=== PATIENT | male | born 1975 | race Caucasian/White ===

== ENCOUNTER 2022-01-30 20:05 | Emergency (ER) | payer OTHER, SELFPAY ==
--- NOTE | ~2022-01-30 | XR_ITS ---
EXAMINATION: XR chest port-a-cath/central EXAM DATE: 01/30/2022 23:05 INDICATION: Central line placement. TECHNIQUE: Portable AP frontal chest x-ray was obtained. There is no prior study for comparison. FINDINGS: There is a nasogastric tube seen with tip collimated off the study, but below the left glenys diaphragm. Right-sided subclavian venous line. No confluent consolidation, pneumothorax or pleural ef fusion suspected. The cardiomediastinal silhouette is prominent but magnified on this AP technique. T here are mild bony degenerative changes. IMPRESSION: No evidence postprocedure pneumothorax or acute cardiopulmonary findings. Reviewed, dictated and finalized at location G. IMPRESSION: No evidence postprocedure pneumothorax or acute cardiopulmonary fi ndings.
--- NOTE | 2022-01-30 20:28 | ED.GIBLEED ---
HPI - GI Bleed General Chief complaint: Unspecified Stated complaint: bloody diarrhea Time Seen by Provider: 01/30/22 20:28 Source: patient History of Present Illness HPI Narrative: 46-year-old male with a history of negative cardiac catheterization per patient, atrial fibrillation on Xarelto, , status post gastric bypass surgery 1 year ago, negative colonoscopy according to the patient presents to the ER with -- 4 large volume bloody stools. No abdominal pain. No hematemesis. No melena. -- hypotension with a blood pressure as low as 78/60 with a heart rate of 130. no prior history of GI bleed. -- patient had a syncopal spell while trying to set up. -- Profuse sweating MD complaint: gross hematochezia Onset (ago): hour(s) ( Started 3 hours ago) Pain Consistency: intermittent Severity: severe Relieving factors: none Exacerbating factors: none Related Data Home Medications Medication Instructions Recorded Confirmed apixaban [Eliquis] 5 mg PO DAILY 01/30/22 01/30/22 cyclobenzaprine 10 mg PO DAILY 01/30/22 01/30/22 lisinopril 5 mg PO DAILY 01/30/22 01/30/22 metoprolol succinate 50 mg PO POST-TRANSFUSION 01/30/22 01/30/22 mupirocin See Rx Instructions .ROUTE .COMPLEX 01/30/22 01/30/22 rivaroxaban [Xarelto] 20 mg PO DAILY 01/30/22 01/30/22 sulfamethoxazole-trimethoprim 1 tablet PO DAILY 01/30/22 01/30/22 Allergies Allergy/AdvReac Type Severity Reaction Status Date / Time No Known Allergies Allergy Verified 01/30/22 20:32 Review of Systems Constitutional: Constitutional: Reports as per HPI and Reports no additional constitutional complaints Eyes: Eyes: Reports as per HPI and Reports no additional eye complaints ENT: Reports system reviewed and no additional complaints, except as documented Cardiovascular: Cardiovascular: Reports as per HPI, Reports no additional cardiovascular complaints and Reports rapid heart rate Respiratory: Respiratory: Reports as per HPI and Reports no additional respiratory complaints Gastrointestinal: Gastrointestinal: Reports as per HPI Comments: Massive hematochezia Genitourinary: Genitourinary: Reports no additional male genitourinary complaints Musculoskeletal: Musculoskeletal: Reports no additional musculoskeletal complaints Integumentary/Breasts: Skin/Breast: Reports system reviewed and no additional complaints, except as docu and Reports as per HPI Neurologic: Reports system reviewed and no additional complaints, except as documented and Reports as per HPI Psychiatric: Psychiatric: Reports no additional psychiatric complaints and Reports as per HPI Endocrine: Endocrine: Reports no additional endocrine complaints Hematologic/Lymphatic: Hematologic/Lymphatic: Reports no additional hematologic/lymphatic complaints Allergic/Immunologic: Allergic/Immunologic: Reports no additional allergic/immunologic complaints [facility] Past Medical History Medical History (Updated 01/30/22 @ 23:31 by Serge Lopez MD) Atrial fibrillation Surgical History Surgical History (Updated 01/30/22 @ 20:53 by Serge Lopez MD) Status post gastric bypass for obesity Exam Const: General: alert Orientation/consciousness: patient oriented x3 HENMT: Head: normal to inspection Eyes: Conjunctivae: conjunctivae normal Pupils: Equal, round and reactive pupils present Neck: Neck: normal visual inspection Chest: Chest palpation & inspection: normal inspection of the chest Resp: Effort & Inspection: normal respiratory effort Auscultation: clear to auscultation bilaterally Cardio: Rate: regular rate and tachycardic GI: GI Palp: Yes Soft to palpation Other: no tenderness/ rigidity /rebound : Testes: Testes normal Back/Spine/Pelvis: Back: no CVA tenderness Skin: General skin exam: normal color Rashes: no rashes Neuro: General: patient oriented x3, moves all extremities and no meningeal signs Extrem: General: normal to inspection Other: prominent varicose vein
[2022-01-30 20:29] VITALS: BP 91/58; PULSE 130; RESP 22; TEMP 36.6; O2SAT 96
--- NOTE | 2022-01-30 20:33 | ECG_ITS ---
Measurements Intervals [place] Rate: 127 P: 114 CT: 219 QRS: -40 QRSD: 103 T: -34 QT: 308 QTc: 448 Interpretive Statements JUNCTIONAL TACHYCARDIA WITH RETROGRADE P WAVES LEFT AXIS DEVIATION [QRS AXIS < -30] PATTERN CONSISTENT WITH PULMONARY DISEASE NONSPECIFIC T-WAVE ABNORMALITY ABNORMAL ECG NO PREVIOUS ECG AVAILABLE FOR COMPARISON Electronically Signed On 01-31-2022 15:35:08 CDT by Ammon Clifton M.D.
[2022-01-30 20:51] LABS: Basophils Absolute Auto 0.06 K/mm3 (0.00-0.10); Basophils Percent Auto 0.7 % (0.0-1.0); Eosinophils Absolute Auto 0.16 K/mm3 (0.02-0.50); Eosinophils Percent Auto 1.9 % (1.0-6.0); Hematocrit 31.6 % (40.0-54.0); Hemoglobin 10.6 g/dL (14.0-18.0); Immature Granulocyte Absolute 0.03 K/mm3 (0.00-0.00); Immature Granulocyte Percent A 0.4 % (0.0-0.0); Immature Platelet Fraction Pct 9.4 % (1.0-7.0); Lymphocytes Absolute Auto 2.08 K/mm3 (1.10-4.50); Lymphocytes Percent Auto 24.7 % (18.0-42.0); Mean Corpuscular HGB Conc 33.5 g/dL (32.0-36.0); Mean Corpuscular Hemoglobin 24.3 pg (27.0-31.0); Mean Corpuscular Volume 72.5 fL (78.0-102.0); Mean Platelet Volume 12.9 fl (8.7-11.0); Monocytes Absolute Auto 0.75 K/mm3 (0.10-0.90); Monocytes Percent Auto 8.9 % (2.0-11.0); Neutrophils Absolute Auto 5.3 K/mm3 (1.7-7.2); Neutrophils Percent Auto 63.4 % (50.0-70.0); Platelet Count Result 231 K/mm3 (150-420); Red Blood Count 4.36 M/mm3 (4.70-6.10); Red Cell Distribution Width 14.6 % (11.6-14.4); White Blood Count 8.4 K/mm3 (4.8-10.8)
[2022-01-30] MEDS: LACTATED RINGERS 1,000 ML 999 ML IV CONT (20:52)
--- NOTE | 2022-01-30 20:52 | PC.NURSE ---
Pt became syncopal when trying to use commode. laid back in bed
[2022-01-30 21:00] LABS: INR 1.2; Partial Thromboplastin Time 37.5 SEC (23.90-30.70); Prothrombin Time 12.5 Seconds (9.50-12.10)
[2022-01-30] MEDS: TRANEXAMIC ACID 1,000MG/ISO100 1,000 MG/100 ML BAG 200 MG IVPB (21:01)
[2022-01-30 21:07] LABS: Alanine Aminotransferase 22 U/L (16-63); Alkaline Phosphatase 65 U/L (46-116); Anion Gap 8 mmol/L (8-16); Aspartate Amino Transferase 20 U/L (15-37); Bilirubin,Total 0.5 mg/dL (0.00-1.00); Blood Urea Nitrogen 37 mg/dL (7-18); Calcium 8.1 mg/dL (8.5-10.1); Carbon Dioxide 22 mmol/L (21-32); Chloride 103 mmol/L (98-108); Estimated CRCL calculation 84 ml/min; Estimated Glomerular Filt Rate > 60; Glucose 136 mg/dL (70-99); Lipase 70 U/L (73-393); Osmolality Calculated 286 mOsm/kg (285-295); Sodium 133 mmol/L (136-145); Total Protein 6.4 g/dL (6.4-8.2)
[2022-01-30 21:27] LABS: NT Pro B Type Natriuretic Pept 326 pg/mL (0-125); Troponin I 7.8 ng/L (0.00-60.4)
[2022-01-30 21:49] LABS: SARS-CoV-2 RNA PCR Negative (Negative)
[2022-01-30] MEDS: ONDANSETRON INJ 4 MG/2 ML VIAL (22:02)
[2022-01-30] MEDS: PANTOPRAZOLE SODIUM IV 40 MG VIAL 80 MG IV PUSH (22:02)
[2022-01-30] MEDS: LIDO 1%/EPINEPHRINE 1:100,000 20 ML VIAL (22:50)
[2022-01-30] MEDS: SODIUM CHLORIDE 0.9% IV 1,000 ML 999 ML IV CONT (23:00)
[2022-01-30 23:13] VITALS: BP 120/79; PULSE 90; RESP 16; TEMP 36.6; O2SAT 99
[2022-01-30 23:18] LABS: Base Excess ABG -4.6 mmol/L (0-2); HCO3 ABG 19.6 mmol/L (23-29); Oxygen Content ABG 6.7 %vol (16.0-22.0); Oxygen Saturation ABG 49.7 % (95-97); Oxyhemoglobin 49.3 % (94-100); PCO2 ABG 32.7 mmHg (35-45); Total Hemoglobin 9.7 g/dL (12.0-18.0)
[2022-01-30 23:19] LABS: Device ROOM AIR
[2022-01-31 00:16] LABS: Hematocrit 31.4 % (40.0-54.0); Hemoglobin 10.2 g/dL (14.0-18.0); Mean Corpuscular HGB Conc 32.5 g/dL (32.0-36.0); Mean Corpuscular Hemoglobin 24.9 pg (27.0-31.0); Mean Corpuscular Volume 76.8 fL (78.0-102.0); Mean Platelet Volume 12.7 fl (8.7-11.0); Platelet Count Result 200 K/mm3 (150-420); Red Blood Count 4.09 M/mm3 (4.70-6.10); Red Cell Distribution Width 17.7 % (11.6-14.4); White Blood Count 9.6 K/mm3 (4.8-10.8)
[2022-01-31 00:22] VITALS: BP 88/68; PULSE 130; RESP 20; TEMP 36.6; O2SAT 100
[2022-01-31 00:49] LABS: Lactic Acid Reflex 2.2 mmol/L (0.4-2.0)
[2022-01-31 00:56] VITALS: BP 90/68; PULSE 130; RESP 20; TEMP 36.7; O2SAT 99
[2022-01-31] MEDS: SODIUM CHLORIDE 0.9% IV 250 ML 30 ML IV CONT (01:00)
--- NOTE | 2022-01-31 01:01 | PC.NURSE ---
pt transfered to [facility], room 326-1, report called to diane SPENCE. Pt transferred out with 1 unit of blood hanging
[2022-01-31 01:06] VITALS: BP 88/46; PULSE 127; RESP 20; TEMP 36.6; O2SAT 99
--- NOTE | 2022-01-31 01:09 | PC.NURSE ---
confirmation note, pt recieved 2 units of blood in house and went out on a third
[2022-01-31 03:14] LABS: Reflex Lactic Acid Yes or No Add Lactic
== END 2022-01-31 01:08 | disposition short-term general hospital (02) ==
PROVIDERS: Emergency Provider Internal Medicine Critical Care Medicine
DX: K92.2 Gastrointestinal hemorrhage, unspecified (principal); R57.1 Hypovolemic shock; D62 Acute posthemorrhagic anemia
CPT/HCPCS: 36415; 36430; 36556; 36600; 80053; 82805; 83605; 83690; 83880; 84484; 85025; 85027; 85055; 85610; 85730; 86850; 86900; 86901; 86920; 93005; 96361; 96365; 96375; 99285; C1751; C9113; C9803; J2405; J7030; J7050; J7120; P9016; U0003; U0005